=== PATIENT | female | born 1940 | race Caucasian/White ===

== ENCOUNTER 2017-06-13 23:49 | Observation (INO) | payer OTHER ==
[~2017-06-13] VITALS: Ht 157.5 cm; Wt 73.3 kg
[~2017-06-13 23:49] MED LIST: ASPIR-TRIN325 M1 PO; CARDIZEM120 MG PO; CITALOPRAM HBR20 M1 PO; CLONIDINE HCL0.1 MG PO; Cardizem CD,Cartia X PO; DIOVAN80 MG PO; HYDROCHLOROTHIA25 MG PO; HYDROCODON-ACE1 EACH PO; HYDROCODONE-AP1 EAC9 PO; ISTALOL5 ML BOTH EYES; LOSARTAN POTAS100 MG PO; LOSARTAN POTASS50 MG PO; LOSARTAN-HCTZ1 EAC1 PO; LOVASTATIN20 MG PO; METOPROLOL SUCC25 MG PO; OMEPRAZOLE20 M2 PO; PRILOSEC20 MG PO; TOPROL XL25 MG PO; TRAMADOL HCL50 MG PO; TYLENOL EXTRA500 MG PO; VITAMIN D31000 UNI2 PO; Zofran PO
[2017-06-14 00:47] LABS: HEMATOCRIT 41.3 % (36.0-46.0); MCH 30.5 PG (29.0-34.0); MCHC 33.4 G/DL (30.0-36.0); MCV 91.2 FL (83-99); MEAN PLAT.VOLUME 11.7 uM^3 (9.5-12.4); PLATELET COUNT 220 K/uL (156-360); RBC DIS.WIDTH-CV 13.4 % (11.8-14.6); RBC DIS.WIDTH-SD 45.4 % (39-53); RED BLOOD COUNT 4.53 M/uL (3.80-5.20); WHITE BLOOD COUNT 5.7 K/uL (4.1-10.2)
[2017-06-14 01:03] LABS: CHLORIDE 106 mEq/L (99-109); POTASSIUM 3.9 mEq/L (3.7-5.4); SODIUM 142 mEq/L (136-147)
[2017-06-14 01:04] LABS: GLUCOSE 126 mg/dL (70-99)
[2017-06-14 01:06] LABS: ANION GAP 10 MEQ/L (2-14)
[2017-06-14 01:08] LABS: GFR ESTIMATE (CALCULATED) 39 mL/min/
[2017-06-14 01:09] LABS: UREA NITROGEN (BUN) 23 mg/dL (9-23)
[2017-06-14 01:13] LABS: TROP-I INTERPRETATION NEGATIVE; TROPONIN-I 0.02 ng/mL (0.0-0.30)
[2017-06-14 02:29] LABS: TROP-I INTERPRETATION NEGATIVE; TROPONIN-I 0.06 ng/mL (0.0-0.30)
[2017-06-14 05:32] VITALS: BP 141/64
[2017-06-14 08:30] VITALS: BP 140/62
[2017-06-14 09:37] LABS: TROP-I INTERPRETATION NEGATIVE; TROPONIN-I 0.16 ng/mL (0.0-0.30)
[2017-06-14 12:00] VITALS: BP 176/83
[2017-06-14 12:17] LABS: ADD MIUA? YES; BILIRUBIN NEGATIVE; BLOOD NEGATIVE; COLOR STRAW ((YELLOW)); GLUCOSE (STRIP) NEGATIVE; KETONES NEGATIVE; LEUKOCYTES TRACE; NITRITE NEGATIVE; PROTEIN (STRIP) NEGATIVE; SPECIFIC GRAVITY 1.006 (1.000-1.030); UROBILINOGEN 0.2 MG/DL (0.2-1.0)
[2017-06-14 12:26] LABS: BACTERIA NONE SEEN /HPF; EPITHELIAL CELLS RARE /HPF; MUCUS NONE SEEN /LPF; RED BLOOD CELLS 0-5 /HPF (0-5); WHITE BLOOD CELLS 0-5 /HPF (0-5)
[2017-06-14 14:38] LABS: TROP-I INTERPRETATION NEGATIVE
[2017-06-14 16:24] VITALS: BP 128/61
[2017-06-14 20:33] VITALS: BP 164/78
[2017-06-14 23:29] VITALS: BP 137/62
[2017-06-15 03:20] VITALS: BP 136/63
[2017-06-15 05:46] LABS: HEMATOCRIT 39.8 % (36.0-46.0); MCHC 32.7 G/DL (30.0-36.0); MCV 91.7 FL (83-99); MEAN PLAT.VOLUME 11.7 uM^3 (9.5-12.4); PLATELET COUNT 204 K/uL (156-360); RBC DIS.WIDTH-CV 13.6 % (11.8-14.6); RBC DIS.WIDTH-SD 46.5 % (39-53); RED BLOOD COUNT 4.34 M/uL (3.80-5.20); WHITE BLOOD COUNT 4.7 K/uL (4.1-10.2)
[2017-06-15 06:15] LABS: TROP-I INTERPRETATION NEGATIVE; TROPONIN-I 0.05 ng/mL (0.0-0.30)
[2017-06-15 06:18] LABS: ANION GAP 7 MEQ/L (2-14); CHLORIDE 106 MEQ/L (99-109); GFR ESTIMATE (CALCULATED) 46 mL/min/; POTASSIUM 4.2 MEQ/L (3.7-5.4); SAMPLE HEMOLYSIS CHECK 0; SAMPLE ICTERIC CHECK 0; SAMPLE LIPEMIA CHECK 0; SODIUM 142 MEQ/L (136-147); UREA NITROGEN (BUN) 22 mg/dL (9-23)
[2017-06-15 06:20] LABS: GLUCOSE 92 mg/dL (70-99)
[2017-06-15 06:54] VITALS: BP 142/67
[2017-06-15 11:39] VITALS: BP 141/63
[2017-06-15] MEDS ORDERED: ASPIR-LOW81 MG PO (11:43)
== END 2017-06-15 14:42 | disposition home or self-care (01) ==
LOC: EME → EDBD 23:49 → EDOF 06-14 03:25 → ENRESERV 06-14 03:31 → 5WEST 06-14 05:21
PROVIDERS: Emergency Medicine; Hospitalist; Internal Medicine Cardiovascular Disease; Physician Assistant; Physician Assistant Medical
DX: R07.9 Chest pain, unspecified (principal); N17.9 Acute kidney failure, unspecified; R94.31 Abnormal electrocardiogram [ECG] [EKG]; I10 Essential (primary) hypertension; H40.9 Unspecified glaucoma; L40.50 Arthropathic psoriasis, unspecified; R30.0 Dysuria; Z87.442 Personal history of urinary calculi; E78.5 Hyperlipidemia, unspecified; I45.10 Unspecified right bundle-branch block; Z82.49 Family history of ischemic heart disease and other diseases of the circulatory system; Z88.8 Allergy status to other drugs, medicaments and biological substances
CPT/HCPCS: 71020; 80048; 81003; 84484; 85027; 85379; 87086; 93005; 99281; 99285; G0378; J1644; J7120